=== PATIENT | female | born 1940 | race Caucasian/White ===

== ENCOUNTER → 2020-09-09 | Outpatient (CLI) | payer OTHER, BC ==
[~2020-09-09] MED LIST: AMARYL2 MG PO; AMBEREN; ASA81BEC PO; AZOR 10-40 MG1 EACH PO; BYSTOLIC 5 MG5 M1 PO; COREG6.25 MG PO; COZAAR 25 MG TA25 M1 PO; CRESTOR40 MG PO; DITROPAN XL10 M1 PO; EFFIENT10 MG PO; EXCEDRIN CAPLE1 EACH PO; GEMFIBROZIL 60600 MG PO; GLUCOPHAGE1000 MG PO; HCTZ; LASIX 40 MG TAB40 M2 PO; LIPITOR80 MG PO; NEURONTIN 300M300 M2 PO; OCUVITE TABLET1 EAC1 PO; OMEPRAZOLE40 MG PO; OXYBUTYNIN CHLO10 MG PO; PAROXETINE HCL20 MG PO; PAXIL20 MG PO; PLAVIX 75 MG TA75 MG PO; PRILOSEC 20 MG20 MG PO; STOOL SOFTENER100 M1 PO; TRAMADOL 50 MG50 MG PO; ZETIA10 MG PO
== END ==
LOC: SJCVC 11:57
PROVIDERS: ATTEND Nurse Practitioner Adult Health
DX: I65.23 Occlusion and stenosis of bilateral carotid arteries (principal); I25.10 Atherosclerotic heart disease of native coronary artery without angina pectoris; E78.00 Pure hypercholesterolemia, unspecified; H35.60 Retinal hemorrhage, unspecified eye; E11.9 Type 2 diabetes mellitus without complications; I87.2 Venous insufficiency (chronic) (peripheral); I10 Essential (primary) hypertension; I70.1 Atherosclerosis of renal artery; Z79.899 Other long term (current) drug therapy; Z86.73 Personal history of transient ischemic attack (TIA), and cerebral infarction without residual deficits

== ENCOUNTER → 2020-09-14 | Outpatient (CLI) | payer OTHER, BC | LOC: LAB 11:26 | PROVIDERS: ATTEND Surgery Vascular Surgery | DX: Z01.812 Encounter for preprocedural laboratory examination (principal); Z20.828 Contact with and (suspected) exposure to other viral communicable diseases ==

== ENCOUNTER → 2020-09-14 | Outpatient (CLI) | payer OTHER, BC | LOC: SJCVCIMAG 07:44 | PROVIDERS: ATTEND Internal Medicine Cardiovascular Disease | DX: I49.1 Atrial premature depolarization (principal); E78.5 Hyperlipidemia, unspecified; I10 Essential (primary) hypertension; E11.9 Type 2 diabetes mellitus without complications; Z79.899 Other long term (current) drug therapy; Z86.73 Personal history of transient ischemic attack (TIA), and cerebral infarction without residual deficits ==

== ENCOUNTER 2020-09-20 06:12 | Inpatient (IN) | payer OTHER, BC ==
[2020-09-09 15:24] LABS: ABSOLUTE NEUTROPHILS 6.2 thou/uL (1.4-8.2); BASOPHILS 0.8 % (0.0-2.0); EOSINOPHILS 2.6 % (0.0-3.0); HEMATOCRIT 36.5 % (37.0-47.0); HEMOGLOBIN 11.8 gm/dL (12.0-15.0); LYMPHOCYTES 22.6 % (24.0-44.0); MCH 28.1 pg (26.0-34.0); MCHC 32.5 g/dL (28.0-37.0); MCV 86.7 fL (80.0-100.0); MONOCYTES 11.3 % (1.0-8.0); PLATELET COUNT 301 thou/uL (150-400); POLYS 62.7 % (36.0-66.0); RBC 4.21 mil/uL (4.20-5.00); RDW 15.1 % (10.5-14.5); WBC 9.9 thou/uL (4.0-11.0)
[2020-09-09 15:28] LABS: URINE BILIRUBIN NEGATIVE (Negative); URINE BLOOD TRACE (Negative); URINE CLARITY CLEAR; URINE COLOR YELLOW; URINE GLUCOSE-RANDOM* NEGATIVE (Negative); URINE KETONES NEGATIVE (Negative); URINE NITRITE-REFLEX NEGATIVE (Negative); URINE PROTEIN (DIPSTICK) 2+ (Negative); URINE UROBILINOGEN 0.2 E.U./dl (0.2-1.0)
[2020-09-09 15:29] LABS: URINE LEUKOCYTES-REFLEX 1+ (Negative)
[2020-09-09 15:34] LABS: BACTERIA-REFLEX >30 Many /HPF (None Seen); CASTS None Seen /LPF (None Seen); CRYSTALS None Seen /LPF (None Seen); SQUAMOUS 4-10 Moderate /LPF (0-3); URINE RBC 0-2 Rare /HPF (0-2); URINE WBC-REFLEX 6-15 Few /HPF (0-5)
[2020-09-09 15:36] LABS: APTT 29.3 Seconds (24.5-32.8); PROTIME 9.6 Seconds (9.3-11.4)
[2020-09-09 15:37] LABS: ALBUMIN 3.7 g/dL (3.4-5.0); CALCIUM 9.2 mg/dL (8.5-10.1); CREATININE 1.8 mg/dL (0.6-1.0); POTASSIUM 4.3 mmol/L (3.5-5.1); TOTAL BILIRUBIN 0.3 mg/dL (0.2-1.0)
[~2020-09-20] VITALS: Ht 162.6 cm; Wt 76.2 kg
[2020-09-20] VITALS (19 sets, daily range): BP systolic 72–138; BP diastolic 23–67
[2020-09-20 12:22] LABS: BE(vivo) -6.3 mmol/L (-2 to +3); HCO3 21.2 mmol/L (22.0-26.0); PO2 275.7 mmHg (80.0-100.0); sO2 99.5 % (92.0-98.0)
[2020-09-20 12:23] LABS: pH 7.237 (7.360-7.450)
[2020-09-20 13:16] LABS: CALCIUM 7.8 mg/dL (8.5-10.1); CREATININE 1.9 mg/dL (0.6-1.0); POTASSIUM 4.9 mmol/L (3.5-5.1)
[2020-09-20 14:54] LABS: TSH 1.454 uIU/mL (0.358-3.740)
--- NOTE | 2020-09-20 19:40 | NUR ---
PT TITRATED FROM BIPAP TO NASAL CANNULA @ 2L/MIN. NIH STROKE SCALE IMPROVING. SBP MAINTAINED BELOW 140 WITH CARDENE DRIP. BLOOD GLUCOSE LEVELS CONTROLLED BY INSULIN DRIP. PT PROGRESSING TOWARD GOALS.
[2020-09-21] VITALS (23 sets, daily range): BP systolic 108–142; BP diastolic 51–70
[2020-09-21 05:16] LABS: HEMATOCRIT 27.5 % (37.0-47.0); HEMOGLOBIN 8.9 gm/dL (12.0-15.0); MCH 28.3 pg (26.0-34.0); MCHC 32.5 g/dL (28.0-37.0); MCV 87.3 fL (80.0-100.0); RBC 3.15 mil/uL (4.20-5.00); WBC 12.8 thou/uL (4.0-11.0)
[2020-09-21 05:29] LABS: CALCIUM 7.7 mg/dL (8.5-10.1); CREATININE 1.9 mg/dL (0.6-1.0); POTASSIUM 4.5 mmol/L (3.5-5.1)
--- NOTE | 2020-09-21 16:40 | NUR ---
chart review. unable to visit with yvrose rt resting. cm spoke with bedside nurse and visited with hair ahhn via phone call. intro to cm and transition of care, ie acute and post acute rehab. son reported lives home with spouse. cant care for her, he has hx of drinking. she some times would use her walker. don't let her drive but wish he would drive. son runs errands and takes her to appointments. she was able to cook, little cleaning, bathe and get her self dress prior to this hospital stay. she went to [facility] skilled rehab at her hip and then had heart attack and stayed at [facility] for rehab. only live 2 miles away per selma, primary contacted rt spouse cognition per son selma.
[2020-09-22] VITALS (39 sets, daily range): BP systolic 110–150; BP diastolic 48–90
--- NOTE | 2020-09-22 03:52 | NUR ---
ASSUMED CARE OF PATIENT AT 1900. NIHSS AT CHARTED. BP TRENDING UPWARD DESPITE SCHEDULED METPROLOL. CARDENE GTT RESTARTED, ATTEMPTED TO TITRATE OFF, BP OVER 170 SYSTOLIC. CARDENE GTT REMAINS ON AT THIS TIME. PATIENT RESTING THROUGH THE NIGHT. ART LINE WITH GOOD WAVE FORM. WORKING TOWARDS POC GOALS.
[2020-09-22 05:21] LABS: CALCIUM 8.1 mg/dL (8.5-10.1); CREATININE 1.8 mg/dL (0.6-1.0); POTASSIUM 4.5 mmol/L (3.5-5.1)
--- NOTE | 2020-09-22 17:06 | PATH ---
[facility] [address] [place] [address] PATHOLOGY RPT PROCEDURE Name: BRIDGETT ABAD Room #: 244-P ADM IN M.R.#: [id number] Admission: 09/20/20 Date of : 38 Discharge: Report #: [id number] Path Case #: [id number] LCA Accession Number: [id number] . 01 Material submitted: . carotid body - RIGHT CAROTID PLAQUE. Modifiers: right . 01 Clinical history: . RIGHT CAROTID DISEASE . 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 (IUV:syed; 09/22/2020) QMS 09/22/2020 1445 Local . 02 Electronically signed: . Mariajose Dickerson MD, Pathologist NPI- [id number] . 01 Gross description: . The specimen is received in formalin, labeled "Bridgett Abad, right carotid plaque". Received are two segments of severely calcified white-chambers vascular tissue measuring 2.5 x 1.8 x 1.2 cm in greatest dimensions. One segment shows a 90% occluded lumen and the opposite segment shows a 75% occluded lumen. The specimen is submitted representatively in cassette A1, following light decalcification. (CAA; 09/21/2020) QA/QA 09/21/2020 1207 Local . 02 Pathologist provided ICD-10: I65.21 . 02 CPT . 825876, [id number] Specimen Comment: A courtesy copy of this report has been sent to [phone], [phone] Specimen Comment: [id number] Specimen Comment: Report sent to / DR LEON Performed at: [address] [id number] MD Biju Brooks MD Phone: [phone] Performed at: [address] [id number] [address] [address] PATHOLOGY RPT PROCEDURE Name: BRIDGETT ABAD Room #: 244-P ADM IN M.R.#: [id number] Admission: 09/20/20 Date of : 38 Discharge: Report #: [id number] Path Case #: [id number] MD Mariajose Dickerson MD Phone: [phone]
--- NOTE | 2020-09-22 17:30 | NUR ---
I have reviewed the documentation by CARLOS WINTER from 09/22/20 to 09/22/20 and I concur with it. MIHAI FERNANDO, PT, DPT
--- NOTE | 2020-09-22 19:02 | NUR ---
speech eval pt for second time today. pureed nectar thick liquid orded. [address]
--- NOTE | 2020-09-22 23:34 | NUR ---
PT TRANSFERED TO ROOM 209. REPORT GIVEN TO WELLINGTON GARCIA. PTS SON (KIERAN) CALLED AND UPDATED WITH THE NEW ROOM NUMBER.
--- NOTE | 2020-09-23 02:34 | NUR ---
ASSUMED CARE OF PATIENT FROM ICU. PATIENT TRANSFERRED TO . INCONTINENT OF URINE. DENIES PAIN, SOA OR ANY OTHER NEEDS. WORKING TOWARDS POC GOALS.
[2020-09-23 05:30] VITALS: BP 156/78
[2020-09-23 08:15] VITALS: BP 178/97
[2020-09-23 11:15] VITALS: BP 129/69
--- NOTE | 2020-09-23 14:06 | NUR ---
The pt had been evaluated by [facility]. They can accept and will have a bed for her when medically cleared by CTS and Neuro. Case discussed with the care team. Will follow.
--- NOTE | 2020-09-23 19:43 | NUR ---
ASSUMED CARE AT CHANGE OF SHIFT. ALERTX3, FORGETFUL, DENIES SOB, DENIES PAIN, LEFT SIDE WEAKNESS. REQUIRES MAX ASSISTANCE. UP TO CHAIR WITH PT TODAY. INCONTINENT BLADDER, NO BM NOTED. NEW DIET ORDER FROM TODAY ENCOURAGING FREE SANTO. PT HAD POOR INTAKE. IV FLUIDS PER AVERY UNTIL SHE MEETS ADIQUIT FLUID INTAKE. STAFF TO ANTICIPATE NEEDS.CALL LIGHT AND PERSONAL ITEMS IN REACH. FALL PRECAUIONS IN PLACE. PLANS TO DC TO [facility] TOMORROW.
[2020-09-23 20:32] VITALS: BP 176/81
[2020-09-23 23:42] VITALS: BP 178/85
[2020-09-24 02:13] VITALS: BP 179/99
[2020-09-24 03:11] VITALS: BP 180/91
--- NOTE | 2020-09-24 04:56 | NUR ---
ASSUMED PT CARE AT THE CHANGE OF SHIFT, PT IS AWAKE, ALERT AND ORIENTED, SR ON THE MONITOR, MEDS GIVEN PER JAN, ASSESSMENTS CHARTED, FREQUENT ROUNDING FOR BLADDER ICONTINENCE, BP ELEVATED, PHYSICIAN CONTACTED, ORDERS RECEIVED, WILL CONTINUE TO MONITOR
[2020-09-24 07:47] VITALS: BP 166/81
[2020-09-24 11:51] VITALS: BP 153/76
[2020-09-24 15:50] VITALS: BP 167/63
--- NOTE | 2020-09-24 16:12 | O ---
[facility] [place] [address] OPERATIVE REPORT Name: EDOUARD RODRIGUEZ Room #: 209-P ADM IN M.R.#: [id number] Admission: 09/20/20 Attend Phys: Robin Simons MD Discharge: Date of : 39 Report #: [id number] THIS REPORT FOR: cc: DAMIAN LEON - Family physician unknown Robin Simons MD ~ CC: STEPHON unknown DAMIAN Simons DATE OF SERVICE: 09/20/2020 PREOPERATIVE DIAGNOSIS: Right carotid artery stenosis. POSTOPERATIVE DIAGNOSIS: Right carotid artery stenosis. OPERATION: Right carotid endarterectomy with patch closure. SURGEON: Robin Simons MD STYRENE DEHYDRATION REACTOR OPERATOR: SONG Randall. ANESTHESIA: General. INDICATIONS: The patient is an 80-year-old seen for Dr. Noel. The patient has a high-grade right internal carotid artery stenosis. The left side has a mild disease. The patient presented at [facility] where this was discovered and she preferred to be treated at this institution. FINDINGS AND TECHNIQUE: After general anesthesia was established, an oblique right neck incision was made. Common facial vein was divided. Common internal and external carotid arteries were identified and controlled, 10,000 units of heparin were given. Continuous electroencephalographic monitoring was performed during the operation. When the carotid vessels were occluded, the right side had diminution of EEG waveforms. Unfortunately, the right common carotid was diffusely calcified and it was necessary to clamp in a soft spot and perform a limited endarterectomy before I was able to place a shunt. With the shunt in place, the endarterectomy was completed. Tacking sutures were placed at the transition zone. The arteriotomy was closed with a running Prolene and thin walled pericardial patch. When the endarterectomy was deemed to be satisfactory, the patch was placed to close the arteriotomy, shunt was removed, flow was reestablished first through the external, then the internal carotid. [facility] [address] [place] [address] OPERATIVE REPORT Name: EDOUARD RODRIGUEZ Room #: 209-P [facility] IN .R.#: [id number] Admission: 09/20/20 Attend Phys: Robin Simons MD Discharge: Date of : 39 Report #: [id number] Protamine was given to reverse the heparin. Hemostasis was ascertained. When hemostasis was satisfactory, a drain was brought out through the bottom pole of the incision and the incision was then closed in the usual fashion. A KIERA dressing was applied and the patient was taken to the recovery area where her neurologic progress was monitored. All counts reported as correct. <ELECTRONICALLY SIGNED> By: Robin Simons MD 09/24/20 1612 1116 1125 Robin Simons MD /nt
--- NOTE | 2020-09-24 16:32 | NUR ---
Bp issues today. Likely ready for dc to [facility] tomorrow. [facility] will have a bed and can accept. CTS agreeable to the dc plan pending hospitalist/neuro clearance.
--- NOTE | 2020-09-24 18:43 | NUR ---
ASSUMED CARE AT CHANGE OF SHIFT. ALERT X4, COMPLIANT WITH CARES. UP WITH ASSIST TO CHAIR TODAY. EXTERNAL FEMALE CATH IN PLACE WITH 1200 OUTPUT. BP IMPROVING. WILL LIKELY DC TO [facility] ON SUNDAY.
[2020-09-24 19:56] VITALS: BP 156/79
--- NOTE | 2020-09-25 03:29 | NUR ---
Assumed pt care at 1900. Pt is alert and oriented. No sign of distress noted. pt is laying in bed. Denies pain. Fall precaution in place. Assessment completed adnd documented.Scheduled meds administered to pt. Tolerated PO intake. Pt to be discharge to [facility]. No acute events overnight. Continue to monitor. No further needs at this time.
[2020-09-25 04:26] VITALS: BP 150/91
[2020-09-25 07:59] VITALS: BP 179/111
[2020-09-25 11:26] VITALS: BP 147/75
--- NOTE | 2020-10-01 12:54 | HC ---
[facility] [place] [address] CONSULTATION Name: EDOUARD RODRIGUEZ Room #: 209-P [facility] IN M.R.#: [id number] Admission: 09/20/20 Attend Phys: Robin Simons MD Discharge: 09/25/20 Date of : 38 Report #: [id number] THIS REPORT FOR: cc: DAMIAN LEON - Family physician unknown Lalito Betancur MD ~ DATE OF SERVICE: 09/20/2020 HISTORY OF PRESENT ILLNESS: This is an 80-year-old female patient who was evaluated by me because the patient underwent a carotid endarterectomy. The patient was discussed with Dr. Simons. Then, the patient had difficult time coming out of the anesthesia. It appeared to be a global problem. The patient is unable to provide any history, but I talked to the patient's son. He indicated that the same thing happened when the patient underwent surgery at [place] about 2-3 years ago. That record is not available. She was on vent for some time and ultimately they was determined that she was "allergic to some anesthesia." I have asked for those records in this patient. REVIEW OF SYSTEMS: Indicate that her blood sugar is running reasonably well. She underwent the surgery today. Her oxygen saturation is running reasonably well also. So, there is no obvious cause for this patient's problem. This patient is on BiPAP. I got a stat CT scan of the head done in this patient that appear unremarkable, but it does have a pretty significant atrophy and white matter ischemic changes. PAST MEDICAL HISTORY: Positive for similar episode after last anesthesia. FAMILY HISTORY: Unremarkable. SOCIAL HISTORY: She apparently does not drink alcohol. PHYSICAL EXAMINATION: Indicate that this patient is completely comatose. She has no response, no reflexes and no plantar. Her right pupil is bigger than left, but that happened because of some bleeding behind the right ear. IMPRESSION: This patient probably had a delayed clearing of the anesthesia. That is especially true because the patient's GFR is only 25. I do not know what her baseline is. I discussed the situation with the son and I think we did a CT and presently we just need to watch the patient to see if she becomes responsive with the time. I have discussed the patient several times with Dr. Simons, with the son, the nurse looking after this patient and reviewed the patient's CT scan. [address] [place] [address] CONSULTATION Name: EDOUARD RODRIGUEZ Room #: 209-P [facility] IN M.R.#: [id number] Admission: 09/20/20 Attend Phys: Robin Simons MD Discharge: 09/25/20 Date of : 38 Report #: [id number] Thank you very much for this referral. <ELECTRONICALLY SIGNED> By: Lalito Betancur MD 10/01/20 1254 1414 1716 Lalito Betancur MD /nt
--- NOTE | 2020-10-01 12:56 | EEG ---
[facility] [place] [address] ELECTROENCEPHALOGRAM Name: EDOUARD RODRIGUEZ Room #: 209-P [facility] IN M.R.#: [id number] Admission: 09/20/20 Attend Phys: Robin Simons MD Discharge: 09/25/20 Date of : 38 Report #: [id number] THIS REPORT FOR: //name// CC: FAM unknown DAMIAN LEON Robin Simons DATE OF SERVICE: 09/20/2020 This patient's EEG was done to look for any reason for her unresponsiveness and any right-sided slowing. EEG was done by placing the electrode by standard 10-20 system of electrode placement. The background activity appeared to be about 8 Hz and 20 microvolt. It is not markedly asymmetrical. Photic stimulation is unremarkable. The patient became drowsy and that is associated with bilateral slowing and vertex sharp waves. IMPRESSION: This patient's EEG is slow in generalized fashion, but does not appear to be any significantly slowing on the right side. Clinical correlation is recommended. <ELECTRONICALLY SIGNED> By: Lalito Betancur MD 10/01/20 [phone] Lalito Betancur MD /nt
== END 2020-09-25 14:52 | DRG 37 ==
LOC: TBA 06:12 → ICU 06:12 → PRE 13:25 → ICU 15:53 → 2N 09-22 23:35
PROVIDERS: Physician Assistant; Psychiatry & Neurology Neuromuscular Medicine; ADMIT Surgery Vascular Surgery; ATTEND Surgery Vascular Surgery
DX: I65.21 Occlusion and stenosis of right carotid artery (principal); I63.9 Cerebral infarction, unspecified; G81.94 Hemiplegia, unspecified affecting left nondominant side; N18.9 Chronic kidney disease, unspecified; Z88.8 Allergy status to other drugs, medicaments and biological substances; D64.9 Anemia, unspecified; D72.829 Elevated white blood cell count, unspecified; M19.90 Unspecified osteoarthritis, unspecified site; E11.22 Type 2 diabetes mellitus with diabetic chronic kidney disease; E78.5 Hyperlipidemia, unspecified; I12.9 Hypertensive chronic kidney disease with stage 1 through stage 4 chronic kidney disease, or unspecified chronic kidney disease; G89.29 Other chronic pain; M54.9 Dorsalgia, unspecified; I25.10 Atherosclerotic heart disease of native coronary artery without angina pectoris; Z79.82 Long term (current) use of aspirin; Z79.899 Other long term (current) drug therapy
CPT/HCPCS: 10078; 10081; 50010; 50101; 50386; 50417; 50455; 51301; 51471; 52279; 52287; 54118; 56524; 56526; 56528; 56531; 56534; 57254; 62110; 62900; 65020; 65040; 70005

== ENCOUNTER 2020-09-23 08:51 | Inpatient (IN) | payer OTHER, BC ==
[~2020-09-23] VITALS: Ht 162.6 cm; Wt 75.3 kg
--- NOTE | ~2020-09-23 | PLAN ---
[facility] [place] [address] REHAB UNIT PLAN OF CARE Name: EDOUARD RODRIGUEZ Room #: 514-P ADM IN M.R.#: [id number] Admission: 09/25/20 Attend Phys: Hay Parker MD Discharge: Date of : 39 Report #: [id number] THIS REPORT FOR: //name// CC: Hay Parker FAM unknown DAMIAN LEON DATE OF SERVICE: 09/27/2020 PROGRESS NOTE/OVERALL PLAN OF CARE SUBJECTIVE: The patient is an 80-year-old white female who was seen today in no distress. Temperature is 98.1, pulse 64, respirations 18, blood pressure 143/73. She is pleasant. She appears to be moving that left side better to me today and is at least a grade 4- to 3+/5. Functionally, she is max assist sit to stand and is ambulated mod assist 19 feet with a front-wheeled walker. In occupational therapy, they are assessing her. She has been needing max assist with basic toilet transfers. Speech therapy has also been involved. She does have moderate cognitive deficits. ASSESSMENT: 1. Clinical cerebrovascular accident with left-sided weakness. She is unable to undergo an MRI scan. Neurologist impression is that she actually has had a stroke. She is noted to be improving. 2. Right carotid artery stenosis, status post endarterectomy with patch closure on 09/20/2020. 3. Anemia. 4. Chronic kidney disease. 5. Chronic back pain with history of stimulator. 6. Degenerative arthritis with prior history of right hip surgery. 7. Diabetes mellitus type 2. 8. Hypertension. 9. Hyperlipidemia. PLAN: The overall plan of care is based on the preadmission screen and information garnered from therapy assessments. 1. Estimated length of stay is probably at least 14 days pending progress. 2. Medical prognosis is reasonably good. 3. Anticipated interventions includes the interdisciplinary acute inpatient rehabilitation program. 4. Anticipated functional outcomes would be for the patient to become modified independent with transfers, mobility and ADL issues, utilizing the walker as well as improvement as far as cognition. Speech has her on a mechanical soft, thin liquid diet. 5. Discharge destination would be back to the home setting where she lives with her spouse. [facility] [address] [place] [address] REHAB UNIT PLAN OF CARE Name: EDOUARD RODRIGUEZ Room #: 514-P [facility] IN .R.#: [id number] Admission: 09/25/20 Attend Phys: Hay Parker MD Discharge: Date of : 39 Report #: [id number] 6. Expected therapy by discipline includes PT, OT and speech 1 hour per day each five days a week throughout the duration of the acute inpatient rehabilitation stay. The patient's prognosis for significant practical improvement within a reasonable period of time appears good. Given the patient's complex medical condition and risk of further medical complications, rehabilitation services cannot be safely provided at the lower level of care such as a correction facility. By: [phone] Hay Parker MD /bello
--- NOTE | 2020-09-23 16:19 | NUR ---
chart review, cm visited with yvrose via phone call, intro to [facility] team meeting and dcp. cm had spoken with hair hahn when yvrose was in icu before going to ccu. she supposed to dc up to acute rehab today. yvrose lives with , in house. is not able to care for anyone rt hx of drinking ethol and impaired cognition. yvrose was independent prior to hospital. cooks, cleans little, drives little, manage own medication. able to bathe and dress herself. son does run some errands and take her to appointments if needed. hair hahn lives 2 miles away. she been to [facility] in past and had cardiac rehab at [facility]. unknown about home health in the past. pcp is "dr otis holloway"/yvrose will cont following as needed for dc needs.
--- NOTE | 2020-09-25 14:59 | NUR ---
PT'S R H IV REMOVED, GAUZE/TEGADERM APPLIED, HEART MONITOR REMOVED, CLEANED, AND RETURNED TO NURSING STATION, PT AWARE OF TRANSFER TO [facility] AND READY/EAGER TO GO, D/C INSTRUCTIONS REVIEWED SIGNED, PT AWARE SHE'LL RECEIVE A NEW SET WHEN SHE LEAVED REHAB. ALL BELONGINGS TAKEN WITH PT TO [facility], TRANSPORTED VIA ASSISTANT TERMINAL MANAGER, ASMITA
[2020-09-25 15:15] VITALS: BP 153/74
--- NOTE | 2020-09-25 16:30 | NUR ---
ASSUMED CARE AT 1600. PT WAS ADMITTED FROM CCU, CAME IN ON A HOSPITAL BED. PT IS ALERT AND ORIENTATED. DENIES ANY PAIN. R NECK INCISION WITH DRESSING INTACT. BP ELEVATED AT 153/74, TEMP 99.3, SAT 100% ON ROOM AIR. DENIES ANY CHILLS, LIGHTHEADEDNESS, DIZZINESS OR SHORT OF AIR. PT REPORTED NO BM SINCE SUNDAY AND DOES NOT FEEL NAUSEATED OR BLOATED. NO REPORTED PASSING FLATUS. BOWEL SOUNDS HYPOACTIVE. PT STATED GOOD APPETITE AND HER BOWEL PATTERN IS NORMAL FOR HER. WILL PLAN TO GIVE LAXATIVES. PT/OT/ST TO EVAL AND TREAT. WILL CONT TO MONITOR.
[2020-09-25 19:25] VITALS: BP 155/81
--- NOTE | 2020-09-25 22:49 | NUR ---
PT ALERT AND ORIENTED X 4, FORGETFUL. INCONT OF URINE. LEFT SIDED WEAKNESS NOTED. DRESSING TO RIGHT NECK C/D/I. PT TAKES MEDS IN APPLESAUCE WITHOUT DIFFICULTY. PT DENIES PAIN OR DISCOMFORT. BED ALARM ON FOR SAFETY. PT APPEARS TO BE SLEEPING ON HOURLY ROUNDS. PT HAS NOT HAD A BM SINCE 09/19. LAXATIVES GIVEN BY DAY NURSE. PT REFUSES DULCOLAX SUPP.
[2020-09-26 06:52] LABS: HEMATOCRIT 32.9 % (37.0-47.0); HEMOGLOBIN 10.6 gm/dL (12.0-15.0); MCH 27.6 pg (26.0-34.0); MCHC 32.1 g/dL (28.0-37.0); MCV 85.8 fL (80.0-100.0); RBC 3.83 mil/uL (4.20-5.00); RDW 14.7 % (10.5-14.5)
[2020-09-26 07:05] LABS: CALCIUM 9.4 mg/dL (8.5-10.1); CREATININE 1.6 mg/dL (0.6-1.0); POTASSIUM 3.4 mmol/L (3.5-5.1)
[2020-09-26 08:00] VITALS: BP 178/82
--- NOTE | 2020-09-26 12:48 | NUR ---
PT ALERT AND ORIENTED TIMES FOUR. VSS. C/O PAIN PRN PAIN MEDICATIONS GIVEN WITH GOOD RELEIF. PT WORKED WEL WITH PHYSICAL THERAPY TODAY. PT TOLERATES MEDS AND MEALS. WILL CONTINUE TO MONITOR.
[2020-09-26 16:04] VITALS: BP 121/75
[2020-09-26 20:00] VITALS: BP 143/73
--- NOTE | 2020-09-26 21:18 | NUR ---
ASSUMED CARE OF PT AT 1850. PT IS A&O TO SELF. IS ON ROOM AIR. DENIES PAIN. IS STABLE. CONTINUES TO HAVE RIGHT SIDED WEAKNESS. IS UP WITH 1 ASSIST, GB, WALKER. FALL PRECAUTIONS & HOURLY ROUNDING CONTINUED THIS SHIFT. LABS REVIEWED. VITALS ASSESSED. PT IS INCONTINENT TO BOTH B&B. IS ABLE TO TURN SELF IN BED. IS ACROSS FROM NURSE STATION. PT IS CURRENTLY SLEEPING. CALL LIGHT WITHIN REACH. WILL CONTINUE TO MONITOR.
--- NOTE | 2020-09-26 21:26 | NUR ---
ASSUMED CARE OF PT AT 1850. PT IS A&OX4. IS ON ROOM AIR. DENIES PAIN IN BACK AT THIS TIME. IS STABLE. LIDOCAINE PATCH TO BACK REMOVED. IS UP WITH 1 ASSIST, GB, WALKER. FALL PRECAUTIONS & HOURLY ROUNDING CONTINUED THIS SHIFT. LABS & VITALS REVIEWED. PT REQUESTED TO SLEEP IN RECLINER TONIGHT. REPORTED IT BEING MORE COMFORTABLE. ALARM IN PLACE. TAKES MEDS IN APPLE SAUCE WHOLE. IS REQUESTING THIN LIQUIDS. EDUCATION PROVIDED REGARDING DR. REYNA FOR HONEY THICK LIQUIDS. PT IS USUALLY CONTINIENT TO B&B, HAS OCCASSIONAL INCONTINENCE TO BLADDER. PT IS CURRENTLY ASLEEP. CALL LIGHT WITHIN REACH. PT VOICED THAT FAMILY WILL BRING BRACES FOR BILAT LE. WILL CONTINUE TO MONITOR.
[2020-09-27 01:06] LABS: GLYCOHEMOGLOBIN (HGB A1C) 6.6 % (4.8-5.6)
[2020-09-27 07:30] VITALS: BP 148/76
--- NOTE | 2020-09-27 10:53 | NUR ---
ASSUMED CARE AT 0700. PT IS ALERT AND ORIENTATED. HAD AN UNEVENTFUL NIGHT AND SLEPT MUCH BETTER IN HER RECLINER. SHE PREFERS SLEEPING IN THE RECLINER AND HELPS WITH HER LOWER BACK. DENIES ANY PAIN FOR NOW. APPETITE GOOD, AND WAS WITH SUPERVISION WITH ST, OK TO CHANGE TO THIN LIQUID. TOOK HER MEDS WITH WATER AND TOLERATED GOOD. HAD A LARGE AMOUNT OF STOOL TODAY AFTER 8 DAYS WITH NO BM. PT ENCOURAGED TO TAKE HER MIRALAX TODAY TO KEEP HER REGULAR AND TO PREVENT CONSTIPATION. LIDOCAINE PATCH AND HEATING PAD APPLIED TO BACK. PARTICIPATING IN THERAPY, TOLERATING WELL. SON BROUGHT HER LEG BRACE TO HELP WITH HER FOOT DEVIATION. CONT TO MONITOR.
[2020-09-27 16:38] VITALS: BP 140/62
[2020-09-27 19:49] VITALS: BP 142/65
--- NOTE | 2020-09-28 00:46 | NUR ---
PT ASSESSMENT COMPLETED AND VSS. MEDS GIVEN ORDERED AND WELL TOLERATED. FALL PRECAUTIONS IN PLACE. PT DID NOT WANT TO SLEEP IN HER BED. PT STATED THAT SHE SLEEPS IN A RECLINER AT HOME AND WANTS TO DO THE SAME HERE BECAUSE OF HER BACK PROBLEMS. UP TO THE BATHROOM WITH HER WALKER/GAIT/ASH FOOT BRACES/SHOES/AND ASST. UNSTEADY AT TIMES. PT DID NEED A LOT OF ASSISTANCE SITTING ON THE TOILET AND WIPING. SHE WAS NOT ABLE TO REMOVE HER SHOES/BRIEF/OR PANTS. SHE NEEDED A LOT OF HELP. CHAIR ALARM ON. SLEEPING WELL. WILL CONTINUE TO MONITOR FREQUENTLY.
[2020-09-28 07:34] VITALS: BP 136/74
--- NOTE | 2020-09-28 13:33 | NUR ---
team meeting, reccomendation: outpt neuropysch. diet mech soft soilds, with thin liquid. assistance with pills and bills at home. poor insight. dc 25th with [facility] ( pt, ot, st, nursing and sw ) has 4ww.
--- NOTE | 2020-09-28 18:44 | NUR ---
Alert and orientated X4. Calm, cooperative and compliant. Wants to go home today. Slightly irregular gait with walker and gait belt. Breath sounds clear. Reg HR auscultated. Color pink with brisk capillary refill and palpable peripheral pulses. Yellow urine per toilet. Active bowel sounds over soft, rounded abdomen. Sat in chair most of day with feet elevated at times. No s/o distress.
[2020-09-28 19:20] VITALS: BP 116/58
--- NOTE | 2020-09-28 23:33 | NUR ---
PT ALERT AND ORIENTED X 4. AMB TO BR WITH WALKER AND ASSIST X 1 WITHOUT DIFFICULTY. LEFT SIDED WEAKNESS NOTED. PT HAD SMALL AMT BRIGHT RED BLOOD ON TOILET TISSUE AT 2100. NO STOOL AT THAT TIME. PT REFUSED PREPARATION H SUPP AFTER SEVERAL OFFERS. PT DENIES PAIN OR DISCOMFORT. PT SLEEPS IN RECLINER. CHAIR ALARM ON FOR SAFETY. PT HAS BEEN AWAKE MUCH OF NIGHT SO FAR.
[2020-09-29 07:54] VITALS: BP 138/67
--- NOTE | 2020-09-29 12:19 | NUR ---
ASSUMED CARE AT 0700. PT IS ALERT AND ORIENTATED. SLEPT WELL IN HER RECLINER. DENIES ANY PAIN TODAY, REFUSES HER LIDOCAINE PATCH. UP WITH MIN ASSIST TO THE BATHROOM. PT HAS EXTERNAL HEMORRHOIDS, PREP H SUPPOSITORY GIVEN TODAY. PT IS EAGER TO GO HOME AND HOPING TO LEAVE SOON. PT EDUCATED ABOUT GETTING STRONGER AND INCREASE STRENGTH AND ENDURANCE BEFORE LEAVING. LAST BM WAS ON 09/27. STOOL REGIMEN GIVEN. PT HAS CHRONIC CONSTIPATION. PARTICIPATING IN THREAPIES. CONT TO MONITOR.
[2020-09-29 14:04] LABS: HEMATOCRIT 27.7 % (37.0-47.0); HEMOGLOBIN 9.1 gm/dL (12.0-15.0); MCH 28.5 pg (26.0-34.0); MCV 86.5 fL (80.0-100.0); RBC 3.2 mil/uL (4.20-5.00); WBC 8.3 thou/uL (4.0-11.0)
--- NOTE | 2020-09-29 14:35 | NUR ---
zaki left message for son selma, requesting a call back rt dcp.
--- NOTE | 2020-09-29 16:09 | NUR ---
cm notified by bedside nurse that yvrose daughter called and requested to talk with rn cm. cm educate that have to pick who want for designated contact and will discuss with son selma who is contact as of currently. will cont following needed for dc needs.
--- NOTE | 2020-09-29 16:20 | NUR ---
cm received from son selma, discussed with calling sister. he stated " i would rather you not, she helping dad while mom in rehab. she enables dad and don't always agree on what is best for them. you should just call me with updates"/hair hahn. discussed dcp and weekly team meeting. will cont following as needed for dc needs.
[2020-09-29 16:49] VITALS: BP 137/61
[2020-09-29 20:00] VITALS: BP 135/61
--- NOTE | 2020-09-30 01:43 | NUR ---
PT ASSESSMENT COMPLETED AND VSS. MEDS GIVEN ORDERED AND WELL TOLERATED. FALL PRECAUTIONS IN PLACE. UP TO THE BATHROOM WITH ASST/GAIT/WALKER/BRACES AND SHOES. PT SLEEPS IN CHAIR WHICH HELPS HER BACK PAIN. VOIDING MODERATE AMOUNT OF YELLOW URINE. INC AT TIMES. 0 BM - MEDICATION GIVEN FOR BM. SLEEPING WELL. WILL CONTINUE TO MONITOR FREQUENTLY.
--- NOTE | 2020-09-30 08:32 | NUR ---
PATIENT UP IN CHAIR, NO DISTRESS, EATING BREAKFAST. NOTE THIS AM'S MEDICATIONS ARE GIVEN WITH THIS NM SUPERVISION BY WELLINGTON CABRERA, DUE TO COMPUTER MALFUNCTION.
[2020-09-30 08:44] VITALS: BP 124/51
--- NOTE | 2020-09-30 11:37 | NUR ---
selma wanted to know how she was doing and what she is working on with therapy. "her cog is not good. i already help them with finances but if need to set their meds up in pill boxes i will. i do still work though " per son selma. will have therapy reach out to son and will cont following as needed for dc needs. " i will get her then on the if nothing changes at the next meeting"/son selma.
--- NOTE | 2020-09-30 12:31 | NUR ---
ASSUMED CARE AT 0700. PT IS ALERT AND ORIENTATED. REPORTED WAS UP MOST OF THE NIGHT AND GOING TO THE BATHROOM. NO INCIDENCE OF INCONTINENCE. DENIES ANY PAIN. REFUSES HER LIDOCAINE PATCH. STILL NO BM SINCE 09/27, STOOL REGIMEN GIVEN. PASSING FLATUS, BOWEL SOUNDS HYPOACTIVE. IF NO BM WILL GIVE DULCOLAX SUPPOSITORY TODAY. PARTICIPATING IN THERAPIES. SHE REQUESTED, " I WANT TO GO HOME TODAY", ADITYA COX AWARE. PLAN FOR DC NEXT SUNDAY FOR NOW. R NECK INCISION WITH NO SIGNS OF INFLAMMATION. NEOSPORIN APPLIED AND COVERED WITH BORDER FOAM DRESSING.
[2020-09-30 19:42] VITALS: BP 146/76
--- NOTE | 2020-09-30 22:30 | NUR ---
PT ALERT AND ORIENTED X 4. AMB TO BR WITH WALKER AND ASSIST X 1. RIGHT NECK DRESSING C/D/I. PT DENIES PAIN OR DISCOMFORT. PT SLEEPS IN RECLINER. CHAIR ALARM ON FOR SAFETY. PT CHECKED ON HOURLY ROUNDS.
[2020-10-01 08:00] VITALS: BP 149/72
--- NOTE | 2020-10-01 16:09 | NUR ---
SITTING UP IN RECLINER WHEN NOT ENGAGED IN THERAPY THIS SHIFT. CALM AND COOPERATIVE. DENIES C/O PAIN/DISCOMFORT. APPETITE GOOD AND TAKES PO FLUIDS WELL-DOES HAVE SWALLOW INSTRUCTIONS POSTED IN ROOM BUT IS AWARE OF RESTRICTIONS AND COMPLIENT WITH THEM. NO COUGHING OR POCKETING NOTED THIS SHIFT. USING ROLLER WALKER WITH SBA X1.
[2020-10-01 19:23] VITALS: BP 131/57
--- NOTE | 2020-10-02 05:02 | NUR ---
Assumed care of pt @ 1900. Took medications whole without difficulty. VSWNL. Health assessment with no abnormalities other than previously noted. No c/o voiced this shift. Currently resting in bed with eyes closed. Will continue to monitor per unit protocol.
[2020-10-02 07:00] VITALS: BP 156/71
--- NOTE | 2020-10-02 09:01 | NUR ---
PT UP TO BATHROOM THIS AM TO VOID. PT USED WALKER WITH STEADY GAIT. PT RT LEG TURNS OUT WHEN AMBULATING. PT COMPLAINED OF A HEADACHE, ADM TYLENOL 325MG 2 TABS PO FOR PAIN TO HEAD OF 5 ON 1-10 SCALE. PT ASKED IF SHE NEEDED A DRESSING TO HER NECK, STATED NO OPEN TO AIR. INCISION IS WELL APPROXIMATED AND NO SIGNS OF INFECTION.
--- NOTE | 2020-10-02 18:02 | NUR ---
ADM TYLENOL 325MG 2 TABS PO FOR COMPLAINTS OF HEADACHE OF 5 ON 1-10 SCALE. ALSO ADM SALINE GEL FOR NOSE IRRITATION.
[2020-10-02 20:00] VITALS: BP 134/58
--- NOTE | 2020-10-03 03:54 | NUR ---
Pt. rested quietly in her recliner chair most of the night when checked on during frequent rounds. Up in recliner chair per pt. choice. Chair alarm is on. She has been walking to the bathroom with assistance of one,gait belt and walker. No c/o pain voiced.
[2020-10-03 07:38] VITALS: BP 159/97
--- NOTE | 2020-10-03 12:47 | NUR ---
ASSUMED CARE AT 0700. PT IS ALERT AND ORIENTATED. SLEPT WELL IN HER RECLINER. DENIES ANY PAIN. UP WITH STAND BY ASSIST TO BATHROOM. PT HAD RECTAL BLEEDING FROM HER HEMORRHOIDS. PT EDUCATED TO DAB AFTER A BOWEL MOVEMENT. DR SIMS ALSO NOTED AND ANUSOL SUPP GIVEN. PT HAD A MODERATE AMOUNT OF STOOL. R NECK INCISION HEALING WITH NEOSPORIN APPLIED AND IS KEPT JEFFRY. NO OTHER CONCERNS, CONT TO MONITOR.
--- NOTE | 2020-10-03 13:38 | HC ---
[facility] [place] [address] [place] [address] CONSULTATION Name: EDOUARD RODRIGUEZ Room #: 514-P ADM IN M.R.#: [id number] Admission: 09/25/20 Attend Phys: Hay Parker MD Discharge: Date of : 38 Report #: [id number] THIS REPORT FOR: cc: DAMIAN LEON - Family physician unknown Josias Lugo PhD ~ DATE OF SERVICE: 09/26/2020 NEUROBEHAVIORAL STATUS EXAM AGE: 80. ATTENDING PHYSICIAN: Hay Parker MD SIGNALMAN: Josias Lugo, PhD CLINICAL PRESENTATION: The patient is an 80-year-old female who presented to the hospital initially for a right carotid endarterectomy with patch closure for severe right carotid artery stenosis on 09/20/2020. During surgery the carotid was occluded. She had diminution of EEG waveforms and a suspected CVA. Neurology was consulted postop and a CT scan that was negative for an acute process and a clinical CVA suspected. The patient has a history of spinal cord stimulator for pain control. She has a problem list of kidney disease and stenosis of the right carotid artery, medications included antidepressant paroxetine along with gabapentin for pain control. Her assessment on admission to the rehabilitation unit was a clinical CVA with left hemiparesis, right carotid artery stenosis, status post endarterectomy with patch closure on 09/20/2020, anemia, CKD, chronic back pain with a history of spinal cord stimulator (possibly turned off), DJD, history of right hip surgery, type 2 diabetes mellitus, hypertension and hyperlipidemia. A complete description of her medical condition and history along with medications can be found in her medical record. Neuropsychological consultation was requested to provide assistance in the assessment of cognitive and emotional status and to provide recommendations and services. Prior to this most recent admission, she was at home, living with her . She has 3 children. Her has PTSD. She reports having been driving minimally. Her son has been helping with bill payment and managing medication. She reports having left the oven and stove on when cooking. She also indicates that her daughter has been helping take care of her while she has been in the hospital. 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 [facility] [address] [place] [address] CONSULTATION Name: EDOUARD RODRIGUEZ Room #: 514-P [facility] IN M..#: [id number] Admission: 09/25/20 Attend Phys: Hay Parker MD Discharge: Date of : 38 Report #: [id number] TECHNIQUES UTILIZED: Clinical interview, review of medical records, staff consultation and behavioral observation, mini mental status exam 2 standard version, brief verbal fluency assessment (letter and category) and digits forward, digits backward. EXAMINATION FINDINGS: The patient reports symptoms to include difficulty with memory. She does not report symptoms include sleep disturbance, problems with appetite or word finding or anxiety. She also denies feelings of depression. There is no evidence of auditory hallucinations or aphasia. Her thoughts are logical and goal oriented. Her performance on the MMSE 2 brief version was in the mild range of impairment with a raw score of 13 of 16. She is a T score of 38 and percentile rank at 12. The patient was 3/3 for initial registration, 4/5 for orientation to time and place. She was 1/3 for immediate recall of 3 items after a brief time delay and distraction. Performance was extremely low on the mini mental status exam standard 2 standard version with a raw score of 21 of 30, T score 28, percentile rank of 1. She was 0/5 for serial 7's, 2/2 for naming, 1/1 for repetition, 3/3 for auditory comprehension. She could read and follow single command and write a sentence. However, the patient was unable to copy a simple geometric design. Clock drawing was impaired for both number placement and hand placement. Visual spatial construction was severely impaired. Her performance in letter fluency was extremely low with a raw score of 6. Category fluency was extremely low with a raw score of 16. Total fluency was extremely low with a raw score of 22. The patient is presenting with severe impairment in neurocognitive functioning. She is alert and oriented, but showing deficits in memory, concentration, visual spatial construction and executive functioning. DIAGNOSTIC IMPRESSION: Major neurocognitive disorder (dementia), unspecified, without behavior disorder -- extent to be determined, likely in the mild to moderate range with [id number] cognitive disorder at this time. RECOMMENDATIONS: The patient will require assistance in the management of medication, finances and nutrition. Driving should be discontinued pending more thorough assessment of neurocognitive functining. Consider neuropsych assessment approximately 3 months from her hospitalization [facility] [address] [place] [address] CONSULTATION Name: EDOUARD RODRIGUEZ Room #: 514-P ADM IN M.R.#: [id number] Admission: 09/25/20 Attend Phys: Hay Parker MD Discharge: Date of : 38 Report #: [id number] to clarify her neurocognitive functioning. She currently will require help in the management of instrumental activities of daily living. She does not report symptoms of depression or anxiety. Her mood likely reflects decreased insight. Thank you very much for allowing me to provide the consultation on this patient. <ELECTRONICALLY SIGNED> By: Josias Lugo, PhD 10/03/20 [id number] Josias Lugo, PhD /nt
[2020-10-03 19:55] VITALS: BP 139/58
--- NOTE | 2020-10-04 00:28 | NUR ---
PT ALERT AND ORIENTED X 4. AMB TO BR WITH WALKER AND ASSIST X 1. RIGHT NECK INCISION C/D/I WITH SOME BRUISING NOTED. PT C/O PAIN IN HER LEFT NECK. TYLENOL GIVEN ORDERED. PT REFUSED ANUSOL SUPP AT HS. NO BLEEDING NOTED FROM HEMORRHOID. PT SLEEPS IN RECLINER. CHAIR ALARM ON FOR SAFETY. PT APPEARS TO BE SLEEPING ON HOURLY ROUNDS.
[2020-10-04 05:36] LABS: ABSOLUTE NEUTROPHILS 5.6 thou/uL (1.4-8.2); BASOPHILS 0.5 % (0.0-2.0); EOSINOPHILS 3.6 % (0.0-3.0); HEMATOCRIT 28.7 % (37.0-47.0); HEMOGLOBIN 9.5 gm/dL (12.0-15.0); LYMPHOCYTES 19.2 % (24.0-44.0); MCH 28.2 pg (26.0-34.0); MCHC 33.1 g/dL (28.0-37.0); MCV 85.4 fL (80.0-100.0); MONOCYTES 10.4 % (1.0-8.0); PLATELET COUNT 496 thou/uL (150-400); POLYS 66.3 % (36.0-66.0); RBC 3.36 mil/uL (4.20-5.00); RDW 14.8 % (10.5-14.5); WBC 8.5 thou/uL (4.0-11.0)
[2020-10-04 05:53] LABS: CREATININE 1.9 mg/dL (0.6-1.0); MAGNESIUM 2.5 mg/dL (1.8-2.4); POTASSIUM 4.7 mmol/L (3.5-5.1)
[2020-10-04 07:10] VITALS: BP 131/67
--- NOTE | 2020-10-04 11:48 | NUR ---
spoke with [facility] via phone call. [facility] nor [facility] have facility in mind for hh. list of choice already provided. "just go with on"/son. referral to be sent to [facility].
--- NOTE | 2020-10-04 12:06 | NUR ---
ASSUMED CARE AT 0700. PT IS ALERT AND ORIENTATED. SLEPT WELL LAST NIGHT. DENIES ANY PAIN TODAY. BG 118. ATE 75% OF BREAKFAST. NEOSPORIN APPLIED TO R NECK SITE, NO SIGNS OF INFLAMMATION. PARTICIPATING IN THERAPIES WELL. PT HAS BEEN CONTINENCE. APPETITE IS IMPROVING. PLAN FOR DC HOME ON SUNDAY. NO OTHER CONCERNS. CONT TO MONITOR.
--- NOTE | 2020-10-04 12:32 | NUR ---
FAXED REFERRAL TO [facility] RECEIVED CONFIRMATION AND SPOKE WITH FRANC IN INTAKE SHE WILL REVIEW PT TO DC 10/06.
--- NOTE | 2020-10-04 14:29 | NUR ---
speech therapy call and passed on that [facility] with cont to need [facility] at home with hh. [facility] ( pt, ot, st, nursing, sw ) dc on .
[2020-10-04 19:30] VITALS: BP 142/69
--- NOTE | 2020-10-05 00:44 | NUR ---
PT ASSESSMENT COMPLETED AND VSS. MEDS GIVEN ORDERED AND WELL TOLERATED. FALL PRECUATIONS IN PLACE. UP TO THE BATHROOM SEVERAL TIMES WITH ASH ANKLE BRACES AND SHOES/WALKER/GAIT/ASST. STEADY. VOIDING MODERATE AMOUNT OF YELLOW URINE. PT SLEEPING IN CHAIR WITH ALARM ON. RESTING WELL. WILL CONTINUE TO MONITOR FREQUENTLY.
[2020-10-05 07:30] VITALS: BP 162/87
[2020-10-05 08:32] VITALS: BP 162/87
--- NOTE | 2020-10-05 12:57 | NUR ---
team meeting, reccomendation: refuses braces. diff for her to manage her dressing with bras. ot reaching out to family to get her some diff bras. soft soild diet, thin, and no straw. started vital stim. poor insight. dc on [facility] ( pt, ot, st with vital stim, nurse and sw). son will pick her up between 2-4 pm. son to assist with medication and finances. no driving until cleared by . outpt neuropysch.
--- NOTE | 2020-10-05 14:58 | NUR ---
ASSUMED CARE AT 0700. PATIENT IS ALERT AND ORIENTED X3, BUT FORGETFUL. PATIENT ORR'S, UP IN THE CHAIR. ABD IS SOFT WITH BSX4. CAN BE INCONTINENT AT TIMES. FALL AND SAFETY PROTOCOLS IN PLACE. DENIES PAIN AT THIS TIME. CONTINUES TO PROGRESS SLOWLY TOWARDS D/C GOALS. WILL CONTINUE TO MONITER.
[2020-10-05 19:46] VITALS: BP 131/53
--- NOTE | 2020-10-06 03:26 | NUR ---
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
[2020-10-06] MEDS ORDERED: VITAMIN D325 MC1 PO (08:21)
[2020-10-06 09:37] VITALS: BP 143/57
--- NOTE | 2020-10-06 11:04 | NUR ---
ASSUMED CARE AT 0700. PT IS ALERT AND ORIENTATED. DENIES ANY PAIN. SLEPT WELL LAST NIGHT. PARTICIPATED WITH THERAPIES EARLIER TODAY. UP WITH ASSIST WITH WALKER. HAD A BM TODAY. NO OTHER CONCERNS. DISCHARGE PLANNING EDUCATED. SON TO PICK HER UP AROUND NOON.
--- NOTE | 2020-10-06 15:14 | NUR ---
PT DISCHARGING TODAY TO HOME WITH [facility] FAXED DC ORDES/SUMMARY RECEIVED CONFIRMATION AND SPOKE WITH FRANC IN INTAKE SHE WILL ARRANGE VISITS WITH PT.
--- NOTE | 2020-10-12 11:09 | NUR ---
received phone call from [facility] who reported " need to talk with sw with home health, dad is at the bar and not able to cook for mom. mom not showered since left because no one told her to. need to talk with speech. would like nurse in home more often that insurance will cover or needs to go to facility. she cant take care of her self at home. i am having to cook meals and bring them to her when i can?"/ cm passed on [facility] phone number. education on private duty but not covered by insurance. " thank you"/ [facility].
== END 2020-10-06 12:45 | disposition home health service (06) | DRG 56 ==
PROVIDERS: Nurse Practitioner; Nurse Practitioner Family; ADMIT Physical Medicine & Rehabilitation; ATTEND Physical Medicine & Rehabilitation
DX: I69.354 Hemiplegia and hemiparesis following cerebral infarction affecting left non-dominant side (principal); I63.9 Cerebral infarction, unspecified; N17.9 Acute kidney failure, unspecified; E11.22 Type 2 diabetes mellitus with diabetic chronic kidney disease; N18.9 Chronic kidney disease, unspecified; F03.90 Unspecified dementia, unspecified severity, without behavioral disturbance, psychotic disturbance, mood disturbance, and anxiety; I12.9 Hypertensive chronic kidney disease with stage 1 through stage 4 chronic kidney disease, or unspecified chronic kidney disease; E55.9 Vitamin D deficiency, unspecified; D64.9 Anemia, unspecified; G89.29 Other chronic pain; M54.9 Dorsalgia, unspecified; E78.5 Hyperlipidemia, unspecified; F43.10 Post-traumatic stress disorder, unspecified; E11.51 Type 2 diabetes mellitus with diabetic peripheral angiopathy without gangrene; F41.9 Anxiety disorder, unspecified; I25.10 Atherosclerotic heart disease of native coronary artery without angina pectoris; K21.9 Gastro-esophageal reflux disease without esophagitis; F32.9 Major depressive disorder, single episode, unspecified; E11.649 Type 2 diabetes mellitus with hypoglycemia without coma; Z90.710 Acquired absence of both cervix and uterus; Z90.49 Acquired absence of other specified parts of digestive tract; Z90.722 Acquired absence of ovaries, bilateral; Z98.41 Cataract extraction status, right eye; Z98.42 Cataract extraction status, left eye; Z95.5 Presence of coronary angioplasty implant and graft; Z95.1 Presence of aortocoronary bypass graft
CPT/HCPCS: 10112